=== PATIENT | male | born 1975 | race Caucasian/White ===

== ENCOUNTER 2017-03-20 05:42 | Observation (INO) ==
[2017-03-20] MEDS ORDERED: Ketorolac 30 MG/ML VIAL IVP ONE (05:49)
[2017-03-20] MEDS ORDERED: 0.9 % Sodium Chloride 500 ML IVC ONE (05:49)
[2017-03-20] MEDS ORDERED: Aspirin 81 MG TAB.CHEW PO ONE (05:49)
--- NOTE | 2017-03-20 05:53 | Emergency Department Note ---
Disposition Clinical Impression: Chest pain Qualifiers: Chest pain type: precordial pain Qualified Code(s): R07.2 - Precordial pain Pancreatitis, acute Qualifiers: Pancreatitis type: alcohol induced Acute pancreatitis complication: unspecified Qualified Code(s): K85.20 - Alcohol induced acute pancreatitis without necrosis or infection Disposition: Admitted As Inpatient Condition: Fair Chest Pain HPI - General Chief Complaint: ED Chest Pain Stated Complaint: CHEST PAIN Time Seen by Provider: 03/20/17 05:45 Source: patient Mode of arrival: private vehicle Limitations: no limitations Vital Signs Reviewed: Yes Nursing Notes Reviewed: Yes - History of Present Illness HPI Narrative: The patient reports that he awoke with acute severe pain in his left chest about 3 hours prior to presentation. This is described as sharp and nonradiating. He states he did have some sweating but no nausea or shortness of breath. He denies increased pain with breathing or moving. He denies cough , fevers or chills. He denies any pain like this before. He denies any lower extremity swelling, immobilization or injury. Denies any new abdominal pains or pack pain. He states it is severe and even something to all the pain. Patient denies history of hypertension, diabetes, elevated cholesterol or obesity. The patient has been a smoker and has history of IV drug use. He states his last use of heroin was a day or 2 ago. He states he does drink and had some alcohol last night. History has been difficult on this patient as he has been passive-aggressive in his responses. Pt complaint: chest pain Onset (ago): hour(s) Duration: constant Onset: during rest Pain Location: left chest Severity: severe Quality: sharp Pain Radiation: none Improves with: nothing Worsens with: nothing Associated symptoms: Reports: diaphoresis. Denies: nausea, vomiting, dyspnea, syncope, palpitations, fever, cough, leg swelling Treatments prior to arrival chest pain: none - Related Data Home Medications Medication Instructions Recorded Confirmed No Known Home Drugs 03/20/17 03/20/17 Allergies Allergy/AdvReac Type Severity Reaction Status Date / Time Penicillins [PCN] Allergy Hives Verified 08/05/16 06:21 All systems ED: reviewed and negative except as stated. Chest Pain PMH - Past Medical History Medical history: Reports: no medical history, other (Pancreatitis, substance abuse). Denies: asthma, COPD, coronary artery disease, DVT, diabetes, hyperlipidemia, hypertension, pulmonary embolus, thyroid disease Surgical history: Reports: no surgical history - Social History Smoking Status: Current every day smoker Alcohol use: Reports: heavy Drug use: Reports: opiates, IV Drug Use Physical Exam - General Limitations: no limitations General appearance: alert, anxious, in distress - Head Head exam: atraumatic, normocephalic, normal inspection - Eye Eye exam: Present: normal appearance, PERRL, EOMI - ENT ENT exam: normal exam, normal oropharynx, mucous membranes moist - Neck Neck exam: Present: normal inspection, full ROM, trachea midline - Chest Chest inspection: Present: normal inspection, symmetric chest wall rise - Respiratory Respiratory exam: Present: other (Mild diminished breath sounds on the left side.). Absent: respiratory distress, wheezes, prolonged expiratory phase - Cardiovascular Cardiovascular exam: Present: regular rate, normal rhythm, normal heart sounds. Absent: systolic murmur, diastolic murmur, rubs, gallop - Abdominal Exam Abdominal exam: Present: soft, Non-Tender, normal bowel sounds. Absent: tenderness, distention, guarding, rebound, rigidity - Extremities Exam Extremities exam: Present: normal inspection, full ROM, normal capillary refill. Absent: tenderness, pedal edema - Expanded Lower Extremity Exam Neurovascular/Tendon exam: Present: normal capillary refill. Absent: motor deficit, sensory deficit, tendon deficit Gait: observed and normal - Back Exam Back exam: Present: normal inspection, full ROM. Absent: tenderness, CVA tenderness (R), CVA tenderness (L) - Neurological Exam Neurological exam: Present: alert, oriented X3 - Psychiatric Psychiatric exam: Present: agitated, anxious - Skin Skin exam: Present: warm, intact, normal color, diaphoresis. Absent: pallor Course Course Narrative: 06: The patient has been threatening to leave unless he gets something else for his pain. His EKG and chest x-ray are unremarkable and all his blood work is pending. Rapid but him pull his IV and leave AGAINST MEDICAL ADVICE, he has been ordered a dose of IV morphine, Haldol and Benadryl for pain and anxiolysis. He is advised that the blood work will take 30-45 minutes to return from the time it was drawn. The patient is somewhat tearful with his report of sharp pain. His current heart rate is 79, respiratory rate 15, saturation 96% on room air and a blood pressure 140/105. 0650: Lab has called to say that they are diluting his lipase. He has been written for IV fluids. He is angrily negotiating for oral fluids. 0700: The patient's d-dimer is elevated and a CT PE study has been ordered. Patient has been resting much more comfortably. Upon completion of the CT PE study I will discuss care with Dr. Rehman as to whether he can be admitted to this facility. 0740: All lab and imaging has been discussed with Dr. Rehman. He is agreeable with observation at this facility providing the CT abdomen with IV contrast does not demonstrate a structural abnormality that would necessitate transfer. Vital Signs Temperature 98.7 F 03/20/17 05:45 Pulse Rate 98 03/20/17 05:45 Respiratory Rate 20 03/20/17 05:45 Blood Pressure 161/108 03/20/17 05:45 O2 Sat by Pulse Oximetry 99 03/20/17 05:45 Temperature 97.8 F 03/21/17 06:48 Pulse Rate 84 03/21/17 06:48 Respiratory Rate 16 03/21/17 06:48 Blood Pressure 183/113 03/21/17 06:48 O2 Sat by Pulse Oximetry 98 03/21/17 06:48 Oxygen Delivery Oxygen Delivery Room Air Chest Pain - Differential Diagnosis Likely: pneumothorax, atypical chest pain, costalchondritis, chest pain - Medical Records Medical records reviewed: Yes I reviewed the patient's medical records. - Lab Data Lab results reviewed: Yes I reviewed the patient's lab results. Result diagrams: 03/20/17 06:14 03/20/17 06:14 Lab Results 03/20/17 03/20/17 03/20/17 Range/Units 06:14 06:14 06:14 WBC 10.5 (4.3-11.1) K/mcL RBC 5.10 (4.19-5.50) M/mcL Hgb 17.0 H (12.9-16.9) g/dL Hct 48.6 (37.5-50.1) % MCV 95.3 (83.0-100.0) fL MCH 33.3 (28.0-33.3) pg MCHC 35.0 (31.6-35.5) g/dL RDW 15.9 H (11.5-14.5) % Plt Count 274 (140-400) K/mcL MPV 8.3 L (9.4-12.4) fL Immature Gran % 0.3 (0-4) % Seg Neutrophils % 71.2 % Lymphocytes % 21.9 % Monocytes % 5.2 % Eosinophils % 1.1 % Basophils % 0.3 % Neutrophils # 7.5 (1.6-8.9) K/mcL Lymphocytes # 2.3 (0.6-4.6) K/mcL Monocytes # 0.5 (0.0-1.3) K/mcL Eosinophils # 0.1 (0.0-0.6) K/mcL Basophils # 0.0 (0.0-0.2) K/mcL PT 10.6 (9.4-12.1) Seconds INR 1.0 APTT 31.4 (26.0-36.0) Seconds D-Dimer 769 H (0-500) ng/mLFEU Sodium (136-145) mEq/L Potassium (3.5-4.5) mEq/L Chloride (98-109) mEq/L Carbon Dioxide (19-29) mEq/L BUN (8-26) mg/dL Creatinine (0.72-1.25) mg/dL Est GFR ( Amer) (> 60) Est GFR (Non-Af Amer) (> 60) BUN/Creatinine Ratio (6-26) Glucose (70-99) mg/dL Calculated Osmolality (280-300) Calcium (8.6-10.8) mg/dL Total Bilirubin 0.8 (0.2-1.2) mg/dL Direct Bilirubin 0.4 (0.0-0.5) mg/dL Indirect Bilirubin 0.4 (0.0-1.2) mg/dL AST 31 (5-34) Units/L ALT 14 (0-55) Units/L Alkaline Phosphatase 129 H (38-126) Units/L Troponin I (0-0.03) ng/mL Serum Total Protein 7.2 (6.0-8.3) g/dL Albumin 3.5 (3.5-5.0) g/dL Globulin 3.7 H (2.4-3.5) g/dL Albumin/Globulin Ratio 0.9 L (1.1-2.2) Amylase 804 H (25-125) Units/L Lipase 753 H (8-78) Units/L Ethyl Alcohol (0-10) mg/dL 03/20/17 03/20/17 03/20/17 Range/Units 06:14 06:14 06:14 WBC (4.3-11.1) K/mcL RBC (4.19-5.50) M/mcL Hgb (12.9-16.9) g/dL Hct (37.5-50.1) % MCV (83.0-100.0) fL MCH (28.0-33.3) pg MCHC (31.6-35.5) g/dL RDW (11.5-14.5) % Plt Count (140-400) K/mcL MPV (9.4-12.4) fL Immature Gran % (0-4) % Seg Neutrophils % % Lymphocytes % % Monocytes % % Eosinophils % % Basophils % % Neutrophils # (1.6-8.9) K/mcL Lymphocytes # (0.6-4.6) K/mcL Monocytes # (0.0-1.3) K/mcL Eosinophils # (0.0-0.6) K/mcL Basophils # (0.0-0.2) K/mcL PT (9.4-12.1) Seconds INR APTT (26.0-36.0) Seconds D-Dimer (0-500) ng/mLFEU Sodium 139 (136-145) mEq/L Potassium 3.6 (3.5-4.5) mEq/L Chloride 101 (98-109) mEq/L Carbon Dioxide 24 (19-29) mEq/L BUN 7 L (8-26) mg/dL Creatinine 0.87 (0.72-1.25) mg/dL Est GFR ( Amer) > 60 (> 60) Est GFR (Non-Af Amer) > 60 (> 60) BUN/Creatinine Ratio 8 (6-26) Glucose 112 H (70-99) mg/dL Calculated Osmolality 287 (280-300) Calcium 10.3 (8.6-10.8) mg/dL Total Bilirubin (0.2-1.2) mg/dL Direct Bilirubin (0.0-0.5) mg/dL Indirect Bilirubin (0.0-1.2) mg/dL AST (5-34) Units/L ALT (0-55) Units/L Alkaline Phosphatase (38-126) Units/L Troponin I 0.01 (0-0.03) ng/mL Serum Total Protein (6.0-8.3) g/dL Albumin (3.5-5.0) g/dL Globulin (2.4-3.5) g/dL Albumin/Globulin Ratio (1.1-2.2) Amylase (25-125) Units/L Lipase (8-78) Units/L Ethyl Alcohol < 10 (0-10) mg/dL - Radiology Data Radiology results reviewed: Yes I reviewed the patient's radiology results. Single view chest x-ray is performed. This does not demonstrate evidence for infiltrate, effusion, pneumothorax, foreign body or heart failure. The cardiac silhouette is normal. I do not see abnormality to the osseous structures of the chest. This is on my interpretation. Impressions Chest X-Ray 03/20/17 05:49 IMPRESSION: No acute process. D/ / Brandon Flores MD / Brandon Flores MD Interpreting Provider: Brandon Flores MD PE study as been performed. There is no evidence for central pulmonary embolism, pneumothorax, infiltrates or pleural effusion. Patient does have inflammation of the pancreas consistent with pancreatitis. No other acute abnormality is seen. This is on my interpretation. CT of the abdomen is performed with IV contrast. This demonstrates inflammatory changes in the pancreas. Do not see other acute abnormality in the abdomen or pelvis. Kidneys are without stone or obstruction. The bowel is without inflammation, obstruction or perforation. There is no free air or free fluid. This is on my interpretation. Radiologist Impression: CT/CT abd pelvis w iv no oral IMPRESSION: 1. Acute on chronic pancreatitis with no definite findings of pancreatic hemorrhage or necrosis. 2. Possibly loculated fluid arising along the inferior margin of the pancreatic body and tail and extending into the root of the small bowel mesentery adjacent to a small bowel loop, corresponding with the earlier CTA finding. The finding is suggestive of a developing pseudocyst, measuring up to 5.3 cm x 3.7 cm in greatest dimensions. 3. 1.5 cm x 1.7 cm x 1.2 cm cystic lesion in the pancreatic uncinate process, potentially a pseudocyst or cystic pancreatic neoplasm. Consider follow-up MRI when symptoms resolve for further evaluation. 4. Trace free fluid is likely reactive. D/ / Jason Breen MD / Jason Breen MD Impressions Chest CTA 03/20/17 06:57 IMPRESSION: 1. No acute pulmonary artery embolism. 2. Incomplete evaluation CT findings concerning for acute superimposed chronic pancreatitis. 3. Incomplete evaluation what appears be vascular structure adjacent to the pancreas. This measures 5.2 x 4.[address] imaging of the abdomen with IV contrast. D/ / 03/20/2017 08:05:29 Eusebio Sandoval MD / jaiden Interpreting Provider: Eusebio Sandoval MD - EKG Data EKG attestation: Yes I reviewed and interpreted this EKG. EKG shows normal: sinus rhythm, axis, intervals, QRS complexes, ST-T waves Rate: normal (80) Interpretation: no acute changes, normal EKG Heart Score - Score History: Slightly Suspicious EKG: Normal Age: Less than 45 Risk Factors: No risk factors known Troponin: Less than normal limit HEART Score Total: 0
[2017-03-20 06:20] LABS: Basophils % 0.3 %; Eosinophils # 0.1 K/mcL (0.0-0.6); Eosinophils % 1.1 %; Hematocrit 48.6 % (37.5-50.1); Immature Granulocytes % 0.3 % (0-4); Lymphocytes # 2.3 K/mcL (0.6-4.6); Lymphocytes % 21.9 %; Mean Corpuscular Hemoglobin 33.3 pg (28.0-33.3); Mean Corpuscular Volume 95.3 fL (83.0-100.0); Mean Platelet Volume 8.3 fL (9.4-12.4); Monocytes # 0.5 K/mcL (0.0-1.3); Monocytes % 5.2 %; Neutrophils # 7.5 K/mcL (1.6-8.9); Platelet Count 274 K/mcL (140-400); Red Cell Distribution Width 15.9 % (11.5-14.5); Segmented Neutrophils % 71.2 %
[2017-03-20] MEDS ORDERED: *HR* Morphine 2 MG/ML SYRINGE IVP ONE (06:23)
[2017-03-20] MEDS ORDERED: Haloperidol Lactate 5 MG/ML VIAL IVP ONE (06:23)
[2017-03-20 06:37] LABS: Prothrombin Time 10.6 Seconds (9.4-12.1)
[2017-03-20 06:39] LABS: Albumin 3.5 g/dL (3.5-5.0); Albumin/Globulin Ratio 0.9 (1.1-2.2); BUN/Creatinine Ratio 8 (6-26); Bilirubin,Direct 0.4 mg/dL (0.0-0.5); Bilirubin,Indirect 0.4 mg/dL (0.0-1.2); Bilirubin,Total 0.8 mg/dL (0.2-1.2); Blood Urea Nitrogen 7 mg/dL (8-26); Calcium 10.3 mg/dL (8.6-10.8); Carbon Dioxide 24 mEq/L (19-29); Chloride 101 mEq/L (98-109); Globulin 3.7 g/dL (2.4-3.5); Glucose 112 mg/dL (70-99); Osmolality,Calculated 287 (280-300); Potassium 3.6 mEq/L (3.5-4.5); Sodium 139 mEq/L (136-145); Total Protein 7.2 g/dL (6.0-8.3); eGFR For African Americans > 60 (> 60); eGFR For Non-African Americans > 60 (> 60)
[2017-03-20 06:40] LABS: Activated Partial Thrombo Time 31.4 Seconds (26.0-36.0)
[2017-03-20] MEDS ORDERED: 0.9 % Sodium Chloride 1,000 ML IVC ONE (06:53)
[2017-03-20] MEDS ORDERED: Ondansetron 4 MG/2 ML VIAL IVP PRN (08:38)
[2017-03-20] MEDS ORDERED: Naloxone 0.4 MG/ML INJ IVP PRN (08:38)
[2017-03-20] MEDS ORDERED: 0.9 % Sodium Chloride 1,000 ML IVC SCH (08:38)
[2017-03-20] MEDS ORDERED: *HR* Promethazine 25 MG/ML VIAL IVP PRN (08:38)
[2017-03-20] MEDS ORDERED: MOM Conc 10 ML UD.LIQ PO PRN (08:38)
[2017-03-20] MEDS ORDERED: *HR* HYDROmorphone (PF) 1 MG/ML SYRINGE IVP PRN (08:38)
[2017-03-20] MEDS: Pantoprazole 40 MG VIAL IVP SCH (09:24)
--- NOTE | 2017-03-20 10:30 | Electrocardiograph Report ---
[address] [place], [place] [address] Test Date: 2017-03-20 Pat Name: Carl Álvarez Department: 9201 Room: [facility] Gender: M Ore Roaster: Af : 1975 Requested By: Clayton Chowdhury Order Number: [id number] Reading MD: Jay Pritchard MD Measurements Intervals [place] Rate: 80 P: 64 KS: 174 QRS: 38 QRSD: 96 T: 63 QT: 364 QTc: 399 Interpretive Statements SINUS RHYTHM Electronically Signed On 03-20-2017 10:29:30 EDT by Jay Pritchard MD
--- NOTE | 2017-03-20 11:12 | Internal Med History&Physical ---
Date of Encounter: 03/20/17 Time of Encounter: 10:45 Assessment and Plan (1) Pancreatitis, acute Current visit: Yes Status: Acute He will be given IV fluids and IV analgesics. Diet will be advanced as tolerated. Labs will be monitored. Qualifiers: Pancreatitis type: alcohol induced Acute pancreatitis complication: unspecified Qualified Code(s): K85.20 - Alcohol induced acute pancreatitis without necrosis or infection Internal Medicine - H&P: HPI Chief complaint: Abdominal pain Admitted From: Home Plans for Post Hospital Care: Home History of present illness: Mr. Álvarez is a 42 year old male who came to emergency room stating he had been awakened at 0200 the day of admission with a pressure sensation in his lower chest and abdomen area. He did not take medication at home. When it did not resolve his father insisted he come to emergency room. He was evaluated and found to have evidence of pancreatitis with possibly developing pseudocyst. He was admitted to [facility] floor for ongoing care needs. He states he drinks 1-2 beers most days. He admits using heroin in the past 48 hours but states he has been generally clean since getting out of inpatient drug rehabilitation approximately 4 months ago. He reports previous pancreatitis approximately 2011. He denies disorders of his liver or gallbladder. He denies vomiting or diarrhea. Past Med Surg Social Fam HX - Past Medical History Medical history: no medical history, other Psychiatric history: no psych history - Past Surgical History Surgical History: no surgical history - Social History Smoking Status: Current every day smoker Packs per day: 1 Smokeless Tobacco Status: No Alcohol use: heavy Drug use: opiates, IV Drug Use Internal Medicine - H&P: Meds No Known Home Drugs 03/20/17 [History] Allergies Penicillins [PCN] Allergy (Verified 08/05/16 06:21) Hives All Systems PM: A 10-system review of systems was performed and is negative for pertinent findings except as documented above in the HPI. Review of systems: Gen.: He states his weight has been stable the past few months Cardiovascular: Denies CT hypertension heart failure angina DVT or pulmonary embolus Respiratory: He has smoked since age 18 up to 2 packs per day. He denies chronic lung disease GI: As per history of present illness : Denies hematuria dysuria or kidney stones Neurologic: He denies large distribution strokes or seizures Endocrine: He denies diabetes thyroid disease or hyperlipidemia Hematology/oncology: He denies blood disorders cancers or anemia Psychiatric: He states he was diagnosed by psychiatrist approximately 7 years ago with PTSD. He does not take medication and does not follow with a mental health provider at this time. He denies other mental health diagnosis. [place] skeletal: He reports multiple bone fractures in the past. - Constitutional Vitals: Temp Pulse Resp BP Pulse Ox 97.6 F 86 16 172/100 95 03/20/17 10:25 03/20/17 10:25 03/20/17 10:25 03/20/17 10:25 03/20/17 10:25 Exam: Gen.: He is a well-developed well-nourished male lying in bed who appears to be in pain HEENT: Head is atraumatic and normocephalic. Eyes: EOMI. There is no scleral icterus. Mouth: Mucosa is moist. Neck: Supple and nontender. There is no thyromegaly or adenopathy noted. Heart: Regular without murmurs gallops or ectopics Lungs: No wheezes or crackles are heard. Abdomen: Bowel sounds are absent. The abdomen is tender to light palpation. I did not press deeply. Extremities: There is no cyanosis edema or clubbing noted. Dorsalis pedis and posttibial pulses are 1-2 over 2 bilaterally. Neurologic: Mental status: He is talkative and a good historian. Cranial nerves : Smile is symmetric. Forehead wrinkles bilaterally. Tongue protrudes midline. EOMI. Motor: There is no pronator drift. Cerebellar: Finger to nose is intact bilaterally. Skin: Warm and dry Internal Med - H&P Results - Labs CBC & Chem 7: 03/20/17 06:14 03/20/17 06:14
[2017-03-20] MEDS: *HR* HYDROmorphone (PF) 1 MG/ML SYRINGE IVP PRN ×4 (11:51→21:15)
[2017-03-20] MEDS: *HR* LORazepam 2 MG/ML VIAL IVP PRN ×3 (11:51→23:42)
[2017-03-20] MEDS ORDERED: *HR* Metoprolol 5 MG/5 ML VIAL IVP ONE (16:34)
[2017-03-20] MEDS: *HR* OxyCODONE/APAP 5/325 TABLET PO PRN (20:05)
[2017-03-21] MEDS: *HR* OxyCODONE/APAP 5/325 TABLET PO PRN ×4 (00:39→15:43)
[2017-03-21] MEDS: *HR* HYDROmorphone (PF) 1 MG/ML SYRINGE IVP PRN ×6 (02:52→20:44)
[2017-03-21] MEDS: *HR* LORazepam 2 MG/ML VIAL IVP PRN ×4 (04:17→20:44)
[2017-03-21 08:36] LABS: Basophils % 0.2 %; Eosinophils # 0.2 K/mcL (0.0-0.6); Eosinophils % 1.2 %; Hematocrit 46.5 % (37.5-50.1); Hemoglobin 16.5 g/dL (12.9-16.9); Immature Granulocytes % 0.4 % (0-4); Lymphocytes # 2.1 K/mcL (0.6-4.6); Mean Corpuscular HGB Conc 35.5 g/dL (31.6-35.5); Mean Corpuscular Hemoglobin 33.3 pg (28.0-33.3); Mean Corpuscular Volume 93.9 fL (83.0-100.0); Mean Platelet Volume 8.2 fL (9.4-12.4); Monocytes % 6.9 %; Neutrophils # 10.6 K/mcL (1.6-8.9); Platelet Count 230 K/mcL (140-400); Red Blood Count 4.95 M/mcL (4.19-5.50); Red Cell Distribution Width 15.9 % (11.5-14.5); Segmented Neutrophils % 76.3 %
[2017-03-21] MEDS: Pantoprazole 40 MG VIAL IVP SCH (09:15)
[2017-03-21 09:19] LABS: Alanine Aminotransferase 12 Units/L (0-55); Albumin 2.9 g/dL (3.5-5.0); Albumin/Globulin Ratio 0.9 (1.1-2.2); Alkaline Phosphatase 98 Units/L (38-126); Aspartate Amino Transferase 27 Units/L (5-34); BUN/Creatinine Ratio 8 (6-26); Calcium 7.8 mg/dL (8.6-10.8); Carbon Dioxide 20 mEq/L (19-29); Chloride 104 mEq/L (98-109); Globulin 3.2 g/dL (2.4-3.5); Glucose 89 mg/dL (70-99); Magnesium 1.8 mg/dL (1.6-2.6); Osmolality,Calculated 275 (280-300); Potassium 3.8 mEq/L (3.5-4.5); Sodium 134 mEq/L (136-145); Total Protein 6.1 g/dL (6.0-8.3); eGFR For African Americans > 60 (> 60); eGFR For Non-African Americans > 60 (> 60)
[2017-03-21 09:20] LABS: Amylase 1645 Units/L (25-125)
[2017-03-21 09:32] LABS: Blood Urea Nitrogen 5 mg/dL (8-26)
[2017-03-21 09:55] LABS: Lipase 2401 Units/L (8-78)
--- NOTE | 2017-03-21 11:28 | Internal Med Progress Note ---
Date of Encounter: 03/21/17 Time of Encounter: 11:26 - Assessment and plan (1) Pancreatitis, acute Current Visit: Yes Status: Acute Assessment and plan: Persistent pain and nausea. CT abd/pelvis with no evidence of necrosis or hemorrhage. Will continue supportive care with IVFs and pain control. Labs to be repeated in AM. Qualifiers: Pancreatitis type: alcohol induced Acute pancreatitis complication: unspecified Qualified Code(s): K85.20 - Alcohol induced acute pancreatitis without necrosis or infection (2) Pancreatic cyst Current Visit: Yes Status: Acute Assessment and plan: Likely two pancreatic pseudocysts. Dedicated MRI of pancreas recommended as outpatient for further evaluation. (3) Essential hypertension Current Visit: Yes Status: Acute Assessment and plan: Remains uncontrolled. Will add CCB and continue current beta-hanna regimen. - Time Spent With Patient less than 15 minutes - Subjective Interval history: There have been no acute events overnight. Patient continues to report severe epigastric abdominal pain and nausea, but does note that he feels better than yesterday. He has been requesting pain medication on regular basis and sleeping much of the day. He is only taking ice chips by mouth. IV fluids continue. Pt is without any acute complaints otherwise at this time. - Constitutional Vitals: Temp Pulse Resp BP Pulse Ox 98.5 F 85 18 177/112 98 03/21/17 10:50 03/21/17 10:50 03/21/17 10:50 03/21/17 10:50 03/21/17 10:50 Exam: Gen: Lying in bed, sleeping, pt did not appear in significant pain, no tremors HEENT: NC, AT Neck: Trachea midline, no mass Pulm: No respiratory distress, CTAB CV: Normal S1 and S2, RRR Abdomen: Soft, + distension, normal BS, + moderate epigastric tenderness without rebound or guarding Ext: No C/C/E Neuro: No appreciable motor/sensor deficits Skin: Warm and dry, no rash Psych: A&Ox3 Internal Medicine: Result - Labs CBC & Chem 7: 03/21/17 08:28 03/21/17 08:28 Labs: Short CBC 03/21/17 Range/Units 08:28 WBC 13.9 H (4.3-11.1) K/mcL Hgb 16.5 (12.9-16.9) g/dL Hct 46.5 (37.5-50.1) % Plt Count 230 (140-400) K/mcL Neutrophils # 10.6 H (1.6-8.9) K/mcL BMP 03/21/17 08:28 Sodium 134 L Potassium 3.8 Chloride 104 Carbon Dioxide 20 BUN 5 L Creatinine 0.65 L Glucose 89 Calcium 7.8 L D Liver Function 03/21/17 Range/Units 08:28 Total Bilirubin 1.0 (0.2-1.2) mg/dL AST 27 (5-34) Units/L ALT 12 (0-55) Units/L Alkaline Phosphatase 98 (38-126) Units/L Albumin 2.9 L (3.5-5.0) g/dL - ABG Interpretation ABG results: PT/INR, D-dimer PT 10.6 Seconds (9.4-12.1) 03/20/17 06:14 D-Dimer 769 ng/mLFEU (0-500) H 03/20/17 06:14 Consult Discharge Plan - Plan Referrals: NO,PCP [Primary Care Provider] - 1 week
[2017-03-21] MEDS: amLODIPine 5 MG TABLET PO SCH (13:27)
[2017-03-21] MEDS: Nicotine 21 MG PATCH.TD24 TD SCH (20:43)
[2017-03-22] MEDS: *HR* HYDROmorphone (PF) 1 MG/ML SYRINGE IVP PRN ×4 (00:06→11:44)
[2017-03-22] MEDS: *HR* LORazepam 2 MG/ML VIAL IVP PRN ×2 (00:06→04:17)
[2017-03-22] MEDS: *HR* OxyCODONE/APAP 5/325 TABLET PO PRN (04:17)
[2017-03-22 05:21] LABS: Basophils # 0.1 K/mcL (0.0-0.2); Basophils % 0.5 %; Eosinophils # 0.3 K/mcL (0.0-0.6); Eosinophils % 2.2 %; Hematocrit 49.9 % (37.5-50.1); Hemoglobin 17.5 g/dL (12.9-16.9); Immature Granulocytes % 0.4 % (0-4); Lymphocytes % 22.9 %; Mean Corpuscular HGB Conc 35.1 g/dL (31.6-35.5); Mean Corpuscular Hemoglobin 33.6 pg (28.0-33.3); Mean Corpuscular Volume 95.8 fL (83.0-100.0); Mean Platelet Volume 9.2 fL (9.4-12.4); Platelet Count 182 K/mcL (140-400); Red Blood Count 5.21 M/mcL (4.19-5.50); Red Cell Distribution Width 16.2 % (11.5-14.5)
[2017-03-22 05:37] LABS: Neutrophils # 8.5 K/mcL (1.6-8.9)
[2017-03-22 05:47] LABS: Albumin 2.7 g/dL (3.5-5.0); Amylase 645 Units/L (25-125); BUN/Creatinine Ratio 6 (6-26); Calcium 7.8 mg/dL (8.6-10.8); Carbon Dioxide 18 mEq/L (19-29); Chloride 103 mEq/L (98-109); Glucose 89 mg/dL (70-99); Lipase 557 Units/L (8-78); Osmolality,Calculated 274 (280-300); Phosphorous 1.1 mg/dL (2.3-4.7); Potassium 3.7 mEq/L (3.5-4.5); Sodium 134 mEq/L (136-145); eGFR For African Americans > 60 (> 60); eGFR For Non-African Americans > 60 (> 60)
[2017-03-22 06:03] LABS: Blood Urea Nitrogen 4 mg/dL (8-26)
[2017-03-22] MEDS: Pantoprazole 40 MG VIAL IVP SCH (07:56)
[2017-03-22] MEDS: amLODIPine 5 MG TABLET PO SCH (08:01)
[2017-03-22] MEDS: Nicotine 21 MG PATCH.TD24 TD SCH (08:02)
[2017-03-22 10:12] VITALS: BP 144/91
--- NOTE | 2017-03-22 10:51 | Discharge Summary ---
Date of Encounter: 03/22/17 Time of Encounter: 10:48 - Discharge Diagnosis (1) Pancreatitis, acute Priority: Primary Status: Acute Comments: Resolving. Complicated only by pseudocyst. No evidence of infection. Pt tolerating po. Will advance diet and d/c home later today. Alcohol avoidance strongly recommended. Qualifiers: Pancreatitis type: alcohol induced Acute pancreatitis complication: unspecified Qualified Code(s): K85.20 - Alcohol induced acute pancreatitis without necrosis or infection (2) Pancreatic cyst Priority: Secondary Status: Acute Comments: Pt aware of need for outpatient evaluation and will obtain PCP. (3) Essential hypertension Priority: Secondary Status: Chronic Comments: BP improved on current oral regimen. Will continue at discharge. Pt advised to obtain PCP for further evaluation and treatment of hypertension (4) Alcohol abuse Priority: Secondary Status: Chronic Comments: Cessation strongly advised. - Discharge Medications Prescriptions: Amlodipine Besylate 10 mg PO DAILY #30 tablet Metoprolol [Lopressor] 100 mg PO BID #60 tablet Oxycodone HCl/Acetaminophen [Percocet 5-325 mg Tablet] 1 each PO Q4H PRN #10 tablet PRN Reason: Severe Pain Promethazine [Phenergan] 25 mg PO Q4H PRN #20 tablet PRN Reason: Nausea And Vomiting Home Medications: Amlodipine Besylate 10 mg PO DAILY #30 tablet 03/22/17 [Rx] Metoprolol [Lopressor] 100 mg PO BID #60 tablet 03/22/17 [Rx] Oxycodone HCl/Acetaminophen [Percocet 5-325 mg Tablet] 1 each PO Q4H PRN #10 tablet 03/22/17 [Rx] Promethazine [Phenergan] 25 mg PO Q4H PRN #20 tablet 03/22/17 [Rx] Allergies/Adverse Reactions: Allergies Penicillins [PCN] Allergy (Verified 08/05/16 06:21) Hives Procedures/tests Complete & Pending: ITS Impressions Chest X-Ray 03/20/17 05:49 IMPRESSION: No acute process. D/ / Brandon Flores MD / Brandon Flores MD Interpreting Provider: Brandon Flores MD Chest CTA 03/20/17 06:57 IMPRESSION: 1. No acute pulmonary artery embolism. 2. Incomplete evaluation CT findings concerning for acute superimposed chronic pancreatitis. 3. Incomplete evaluation what appears be vascular structure adjacent to the pancreas. This measures 5.2 x 4.[address] imaging of the abdomen with IV contrast. D/ / 03/20/2017 08:05:29 Eusebio Sandoval MD / [place] Interpreting Provider: Eusebio Sandoval MD Abdomen/Pelvis CT 03/20/17 07:41 IMPRESSION: 1. Acute on chronic pancreatitis with no definite findings of pancreatic hemorrhage or necrosis. 2. Possibly loculated fluid arising along the inferior margin of the pancreatic body and tail and extending into the root of the small bowel mesentery adjacent to a small bowel loop, corresponding with the earlier CTA finding. The finding is suggestive of a developing pseudocyst, measuring up to 5.3 cm x 3.7 cm in greatest dimensions. 3. 1.5 cm x 1.7 cm x 1.2 cm cystic lesion in the pancreatic uncinate process, potentially a pseudocyst or cystic pancreatic neoplasm. Consider follow-up MRI when symptoms resolve for further evaluation. 4. Trace free fluid is likely reactive. D/ / Jason Breen MD / Jason Breen MD Interpreting Provider: Jason Breen MD - Notes to Outpatient Provider Recommend dedicated imaging of pancreas to evaluate pancreatic lesions noted on CT. Date of admission: 03/20/17 08:27 Primary care physician: PCP NO Consults: None Discharging clinician: Liu Duran Anticipated date of discharge: 03/22/17 - Patient Status Disposition: Home, Self-Care Condition: Fair Functional capacity at discharge: independent ambulation - Discharge Instructions Follow Up With: NO,PCP [Primary Care Provider] - 1 week - Diet and Activity Activity: increase activity as tolerated Diet: advance to your usual diet Interval History: Pt notes considerable improvement in nausea and abdominal pain over last day. He is tolerated a liquid diet without emesis. BMs normal. Pt ambulating in halls. He is eager for discharge home. Hospital course: Mr. Álvarez is a 42 year old male who was admitted for alcohol-induced acute pancreatitis by CT scan and elevated lipase/amylase. Pt responded well to supportive care with IV fluids, pain medications and anti-emetics. Pancreatic enzymes trended down and symptoms subsequently improved. Two cystic lesions noted on pancreas, likely pseudocysts. Pt is aware that these lesions should be further evaluated as outpatient. Pt was also placed on two oral antihypertensives to control BP. BP was 130s-140s/80s at time of discharge on medication regimen. He is to establish a PCP upon discharge. Alcohol cessation strongly advised. Time spent discussing smoking cessation with patient: 3 to 10 minutes - Time Spent with Patient Total time spent providing and/or coordinating discharge services: Less than 30 minutes - Constitutional Vitals: Temp Pulse Resp BP Pulse Ox 98.3 F 79 16 144/91 97 03/22/17 10:05 03/22/17 10:05 03/22/17 10:05 03/22/17 10:05 03/22/17 10:05 Exam: Gen: Lying in bed, NAD HEENT: NC, AT Neck: Trachea midline, no mass Pulm: No respiratory distress, CTAB CV: Normal S1 and S2, RRR Abdomen: Soft, ND,+ mild generalized tenderness throughout without rebound or guarding Ext: No C/C/E Neuro: No appreciable motor/sensor deficits Skin: Warm and dry, no rash Psych: A&Ox3
== END 2017-03-22 12:35 | disposition home or self-care (01) ==
LOC: INPPIK 05:42 → EMEROOPIK 05:42 → INPPIK 08:50
PROVIDERS: ADMIT Internal Medicine; ATTEND Internal Medicine